=== PATIENT | male | born 1940 | race Caucasian/White ===

== ENCOUNTER 2024-12-26 11:09 | Outpatient (CLI) | payer MEDICARE, SELFPAY ==
[2024-12-26 12:51] LABS: Alanine Aminotransferase 17 U/L (6-50); Alkaline Phosphatase 35 U/L (38-126); Anion Gap 7 mmol/L (4-12); Aspartate Amino Transferase 31 U/L (17-59); Bilirubin,Total 0.5 mg/dL (0.2-1.3); Blood Urea Nitrogen 23 mg/dL (9-20); Calcium 9.7 mg/dL (8.4-10.2); Carbon Dioxide 23 mmol/L (22-30); Chloride 112 mmol/L (98-107); Estimated Glomerular Filt Rate > 60; Glucose 169 mg/dL (65-110); Osmolality Calculated 301 mOsm/kg (285-295); Potassium 4.3 mmol/L (3.4-5.0); Sodium 142 mmol/L (137-145); Total Protein 6.7 g/dL (6.3-8.2)
[2024-12-26 13:21] LABS: Prostate Specific Antigen 0.2 ng/mL (< OR = 4.0)
== END 2024-12-26 11:10 | disposition home or self-care (01) ==
LOC: CHSLAB 11:18
PROVIDERS: PCP Physician Assistant; Visit Provider Urology
DX: N40.1 Benign prostatic hyperplasia with lower urinary tract symptoms (principal)
CPT/HCPCS: 36415; 80053; 84153